=== PATIENT | female | born 1975 | race Caucasian/White ===

== ENCOUNTER 2016-11-14 14:52 | Emergency (ER) | payer MEDICAID ==
[~2016-11-14] VITALS: Ht 170.2 cm; Wt 87.1 kg
[2016-11-14 18:01] VITALS: BP 132/57
== END 2016-11-14 18:30 | disposition home or self-care (01) ==
LOC: ED 14:52
DX: B34.9 Viral infection, unspecified (principal)
CPT/HCPCS: 87804